=== PATIENT | female | born 2005 | race Caucasian/White ===

== ENCOUNTER 2024-10-28 21:24 | Emergency (ER) | payer BC ==
[~2024-10-28] VITALS: Ht 162.6 cm; Wt 78.0 kg
[2024-10-28 21:43] VITALS: O2SAT 98
[2024-10-29] MEDS: ONDANSETRON HCL 4MG/2ML INJ IV STA (00:33)
[2024-10-29] MEDS: FENTANYL CITRATE/PF 50MCG/ML 2ML VIAL IV ONE (00:35)
[2024-10-29] MEDS: SODIUM CHLORIDE 0.9% 500 ML IV ONE (00:36)
[2024-10-29 00:52] LABS: BASOPHILS % 0.6 % (0.0-2.0); EOSINOPHILS % 1.4 % (0.0-5.0); HEMATOCRIT. 41.2 % (36.0-48.0); HEMOGLOBIN. 13.9 g/dL (12.0-16.0); LYMPHOCYTES % 23.6 % (20.0-50.0); MEAN PLATELET VOLUME 10.0 fl (7.4-10.4); MONOCYTES % 8.5 % (2.0-8.0); NEUTROPHILS % 65.9 % (40.0-76.0); PLATELET 243 x1000/uL (130-400); RED BLOOD CELL COUNT 4.61 mill/uL (4.2-5.4); RED CELL DISTRIBUTION WIDTH 12.4 % (11.6-14.6)
[2024-10-29 01:01] LABS: HCG SCREEN NEGATIVE
[2024-10-29 01:02] LABS: CREATININE 0.7 mg/dL (0.6-1.0); UREA NITROGEN BLOOD 13 mg/dL (9-23)
[2024-10-29] MEDS ORDERED: IOHEXOL-300 100 ML BOTTLE ONE (02:13)
[2024-10-29] MEDS ORDERED: IBUP-2029 MT (02:55)
[2024-10-29 03:19] VITALS: BP 97/60; PULSE 62; RESP 18; TEMP 36.6; O2SAT 100
== END 2024-10-29 03:26 | disposition home or self-care (01) ==
LOC: ER 21:24
DX: S19.9XXA Unspecified injury of neck, initial encounter (principal); S39.012A Strain of muscle, fascia and tendon of lower back, initial encounter; S09.90XA Unspecified injury of head, initial encounter; Z79.899 Other long term (current) drug therapy; V49.40XA Driver injured in collision with unspecified motor vehicles in traffic accident, initial encounter; Y93.9 Activity, unspecified; Y92.89 Other specified places as the place of occurrence of the external cause; Y99.8 Other external cause status
CPT/HCPCS: 36415; 73120; 99291; 80048; 84703; 85025; 70450; 70491; 71260; 72125; 74177; 96361; 96374; 96375; J7040; J3010; Q9967; J2405; Z7610 ×3